=== PATIENT | male | born 1945 | race Caucasian/White ===

== ENCOUNTER → 2018-08-19 | Outpatient (CLI) | payer OTHER ==
--- NOTE | 2018-08-19 14:10 | RADIOLOGY REPORT (SQ) ---
EXAM DESCRIPTION: U/S NON OB PEL W/DOPPLER COMPLETED DATE/TIME: 08/19/2018 1:40 pm REASON FOR STUDY: OTHER INTRA-ABDOMINAL AND PELVIC SWELLING, MASS AND LUMP (R19.09) palpable abnorma lity left inguinal region greater than 1 year in duration COMPARISON: None. TECHNIQUE: Dynamic and static grayscale images acquired of the left inguinal region via transabdomin al approach and recorded on PACS. Additional selected color Doppler and spectral images recorded. LIMITATIONS: None. FINDINGS: In the left inguinal region, there are 2 benign-appearing lipomas, 2.6 x 2.1 cm in size an d 4.7 x 2.4 cm in size. No left inguinal hernia is identified. No enlarged left inguinal lymph nodes. IMPRESSION: Palpable abnormality left inguinal region correlates with 2 lipomas on ultrasound TECHNICAL DOCUMENTATION: JOB ID: [id number] [email or web address]- All Rights Reserved Reading location - IP/workstation name: [facility]
== END ==
LOC: RAD 12:52
PROVIDERS: ATTEND Surgery
DX: D17.5 Benign lipomatous neoplasm of intra-abdominal organs (principal); R19.09 Other intra-abdominal and pelvic swelling, mass and lump
CPT/HCPCS: 76856; 93976

== ENCOUNTER 2018-09-11 08:05 | Day surgery (SDC) | payer OTHER, MEDICARE ==
[~2018-09-11 08:05] MED LIST: BUPIVACAINE HCL 0.5 % INJ/PF 30 ML SDV ONE; CEFAZOLIN 2 GM/D5W RTU 2 GM/50 ML RTUPB IV ONE; CEFAZOLIN 2 GM/D5W RTU 2 GM/50 ML RTUPB IV PRN; LACTATED RINGERS 1000 ML IV PRN; LIDOCAINE 0.5% INJ-PF (5 MG/ML) 50 ML SDV SUBCUT PRN; LIDOCAINE 1% INJ-PF (10 MG/ML) 30 ML SDV ONE
[2018-09-11] MEDS ORDERED: FENTANYL CITRATE INJ/PF 100 MCG/2 ML AMPUL ONE (10:25)
[2018-09-11] MEDS ORDERED: MIDAZOLAM 2 MG/2 ML INJ ONE ×2 (10:26→10:46)
[2018-09-11] MEDS ORDERED: PROPOFOL INJ 200 MG/20 ML VIAL IV ONE (10:26)
[2018-09-11] MEDS ORDERED: MEPERIDINE HCL/PF INJ 25 MG/1 ML DISP.SYRIN IV PRN (11:01)
[2018-09-11] MEDS ORDERED: DIPHENHYDRAMINE HCL 50 MG/ML VIAL IV PRN (11:01)
[2018-09-11] MEDS ORDERED: FENTANYL CITRATE INJ/PF 100 MCG/2 ML AMPUL IV PRN ×3 (11:01)
[2018-09-11] MEDS ORDERED: PROMETHAZINE HCL INJ 25 MG/1 ML VIAL IV PRN (11:01)
--- NOTE | 2018-09-11 11:18 | Discharge Summary ---
Discharge Summary (SDC) - Discharge Final Diagnosis: Left groin lipoma Date of Surgery: 09/11/18 Discharge Date: 09/11/18 Condition: Stable Treatment or Instructions: Surgeon home. Diet as tolerated. Activity nonstrenuous. Follow-up with me in 7-10 days. Okay to shower in 48 hours. No tub baths times 2 weeks. Over-the- counter Advil/Tylenol for pain. Referrals: MARIA TERESA GAYTAN MD [Primary Care Provider] - Discharge Diet: As Tolerated Respiratory Treatments at Home: Deep Breathing/Coughing, Incentive Spirometer Discharge Activity: Balance Activity w/Rest Home Care Assistance: None Needed Report the Following to Your Physician Immediately: Shortness of Breath, Nausea , Vomiting, Increase in Pain, Fever over 101 Degrees, Unusual Bleeding, Redness
--- NOTE | 2018-09-11 11:21 | Operative Report ---
Nonrecallable Operative Report DATE OF SURGERY: 09/11/18 PREOPERATIVE DIAGNOSIS: Left groin lipoma. POSTOPERATIVE DIAGNOSIS: Left groin lipoma, 4 cm OPERATION: 1. Excision of the left groin lipoma, 4 cm. 2. Intermediate closure of a 3 cm left groin incision. SURGEON: CINDY CHAVEZ SHOP REPAIRER: AGA GARCIA ANESTHESIA: LMAC TISSUE REMOVED OR ALTERED: 4 cm left groin lipoma COMPLICATIONS: None apparent ESTIMATED BLOOD LOSS: Minimal PROCEDURE: Drains/Implants: None. Procedure in detail: After informed consent was obtained, the patient was brought to the operating room and laid in the supine position. The area of the left groin was prepped and draped in a normal sterile fashion. A 15 blade scalpel was used to create a 3 cm incision over the lipoma in the left groin. Dissection was carried through the subcutaneous tissue using sharp and blunt dissection. The lipoma was removed from the surrounding fatty tissue. Hemostasis was achieved. The subcutaneous tissue was closed using 3-0 Vicryl suture. The overlying skin was closed using 4-0 Vicryl Rapide suture in subcuticular fashion. A dressing was placed, and the procedure was concluded. All sponge, instrument, and needle counts were correct x2. Condition: Stable. Aga Garcia PA-C was scrubbed and present the entirety of the procedure. She assisted with all portions of procedure including opening of the skin, dissection of the lipoma, removal of lipoma, closure of the subcutaneous tissue , and closure of the skin.
[2018-09-11 12:48] VITALS: BP 152/87
--- NOTE | 2018-09-11 13:23 | EKG REPORT ---
SEVERITY:- NORMAL ECG - SINUS RHYTHM : Confirmed by: Jatinder Pandey MD 11-Sep-2018 13:22:51
== END 2018-09-11 12:49 | disposition home or self-care (01) ==
LOC: OROUT 08:05
PROVIDERS: ATTEND Surgery
DX: D17.9 Benign lipomatous neoplasm, unspecified (principal); Z88.8 Allergy status to other drugs, medicaments and biological substances; I10 Essential (primary) hypertension; Z79.899 Other long term (current) drug therapy; E66.3 Overweight; Z68.36 Body mass index [BMI] 36.0-36.9, adult; Z87.891 Personal history of nicotine dependence; M19.90 Unspecified osteoarthritis, unspecified site
CPT/HCPCS: 36415; 84132; 88304 ×2; 93005; 93010; 22903; J2250; J3490 ×2; J3010; J2704; J0690; 400